=== PATIENT | male | born 1935 | race Caucasian/White ===

== ENCOUNTER 2022-03-06 13:21 | Emergency (ER) | payer MEDICARE, SELFPAY ==
--- NOTE | 2022-03-06 13:27 | XRR_ITS ---
PROCEDURE INFORMATION: Exam: XR Left Hip Exam date and time: 03/06/2022 1:43 PM Age: 86 years old Clinical indication: Hip pain; Left hip; Additional info: Possible hip FX TECHNIQUE: Imaging protocol: XR Left hip. Views: 2 or 3 views hip with pelvis when performed. COMPARISON: No relevant prior studies available. 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 Osseous structures are intact. No acute fracture. Soft tissues: Unremarkable. XR/XR hip LT 2-3V wo/w pel* [id number] IMPRESSION: No acute findings.
[2022-03-06 14:01] VITALS: BP 122/74; PULSE 57; RESP 20; TEMP 36.6; O2SAT 99
--- NOTE | 2022-03-06 15:29 | ED_ITS ---
HPI - Fall General: Chief Complaint: Fall Stated Complaint: Left Hip injury, fell Time Seen by Provider: 03/06/22 15:29 History of Present Illness: fall, hit left hip Fall from: standing Review of Systems General: Reports: 10 or more systems reviewed and unremarkable except in HPI and below Skin/Breast: Reports: skin tenderness (left forearm ) Neuro: Reports: difficulty communicating thoughts (Alzheimer's) Physical Exam Const: COMMON NORMALS: no acute distress, healthy appearing and alert GENERAL APPEARANCE: cooperative and comfortable ORIENTATION/CONSCIOUSNESS: Yes awake HENMT: COMMON NORMALS: normocephalic, atraumatic, external ears normal, EAC's normal, TM's normal bilaterally and Normal external nose present HEAD & SCALP: normal to inspection, normocephalic and atraumatic FACE & SINUS: normal facial exam, sinuses nontender and face symmetric NOSE: Normal external nose present, Normal nares present and No nasal discharge present EXTERNAL EAR: Yes external ears normal EXTERNAL AUDITORY CANAL: EAC's normal TYMPANIC MEMBRANE: TM's normal bilaterally MOUTH: Normal oral and palatal mucosa present, lip normal and tongue normal THROAT: posterior oropharynx normal, tonsils normal and uvula midline Eye: COMMON NORMALS: Equal, round and reactive pupils present, EOMs intact bilaterally and conjunctivae normal GENERAL EYE: appearance normal, both eyes and all related structures and normal light reflex EYELID: eyelids normal CONJUNCTIVA: Yes conjunctivae normal PUPIL: Yes Equal, round and reactive pupils present EOM: Yes EOM abnormal DIRECT OPHTHALMOSCOPY: Yes normal light reflex Neck/C-Spine: COMMON NORMALS: full ROM, no lymphadenopathy, supple, no meningeal signs, no JVD and Thyroid normal GENERAL: Yes normal visual inspection THYROID: Thyroid normal CERVICAL SPINE: Yes cervical ROM normal and Yes normal cervical lordosis Lymph: LYMPHATIC: no lymphadenopathy noted Chest: COMMONS NORMALS: normal inspection of the chest and normal palpation of entire chest wall Resp: COMMON NORMALS: normal respiratory effort, No retractions and clear to auscultation bilaterally AUSCULTATION: clear to auscultation bilaterally Cardio: COMMON NORMALS: no JVD, regular rate, regular rhythm, S1 normal heart sound present, S2 normal heart sound present, No gallops present (Cardio), No clicks present (Cardio), No murmurs present (Cardio), No rub (Cardio) and Peripheral pulses 2+ throughout RATE: regular rate RHYTHM: regular rhythm HEART SOUNDS: S1 normal heart sound present and S2 normal heart sound present PERIPHERAL PULSES: Peripheral pulses 2+ throughout GI: COMMON NORMALS: Normal to inspection, nondistended, normoactive bowel sounds present, Soft to palpation, non-tender and no masses PALPATION: Yes Soft to palpation : COMMON NORMALS: Yes no CVA tenderness BLADDER/KIDNEY EXAM: Yes no CVA tenderness Back/Pelvis: COMMON NORMALS: no CVA tenderness, thoracic and lumbar spine normal to inspection, no thoracic nor lumbar tenderness and thoraco-lumbar ROM normal Extremity: COMMON NORMALS: normal to inspection, full ROM, capillary refill normal, no joint enlargement, no clubbing, cyanosis or edema, no calf tenderness and no pedal edema GENERAL: Yes normal exam except as noted Neuro: COMMON NORMALS: moves all extremities, no focal motor deficits, no sensory deficits noted and gait normal SENSORIUM/ORIENTATION: Yes alert MENINGEAL SIGNS: Yes no meningeal signs Psych: COMMON NORMALS: mental status grossly normal, Normal thought process present, cooperative, normal affect, speech normal and activity/motor behavior normal SPEECH: Yes normal speech THOUGHT PROCESS: Normal thought process present Skin: COMMON NORMALS: no wounds GENERAL SKIN EXAM: ecchymosis (left forearm ) TRAUMA: abrasion (left forearm ) Course Vital Signs: Vital signs: Vital Signs Temperature 98 F 03/06/22 14:01 Pulse Rate 57 L 03/06/22 14:01 Respiratory Rate 20 H 03/06/22 14:01 Blood Pressure 122/74 03/06/22 14:01 Pulse Oximetry 99 03/06/22 14:01 MDM - Fall Medical Decision Making Pt had fallen on Saturday onto left hip while was in another room. She is his primary caregiver. He did not note any pain but wanted to ensure his hip was not harmed as he had a previous fx on the same side earlier this year with extensive surgery. XRAY show NAF. We will proceed with DC. Evaluated left forearm abrasion and redressed. Lab Data Radiology Impressions Hip/Pelvis X-Ray 03/06/22 13:27 IMPRESSION: No acute findings. Imaging Data Other Imaging: Radiologist's impression: [address] [place] [address] XRay Report Signed Patient: Juan Roldan Unit #: [id number] : 1935 Age/Sex: 86 / M ADM Date: 03/06/22 Loc: ER Room/Bed: Attending Dr: Ordering Provider/Ordering MD: Quin Fitzpatrick MD Date of Service: 03/06/22 Procedure(s): XR hip LT 2-3V wo/w pel* [id number] Accession Number(s): [id number] Report Number: [id number] PROCEDURE INFORMATION: Exam: XR Left Hip Exam date and time: 03/06/2022 1:43 PM Age: 86 years old Clinical indication: Hip pain; Left hip; Additional info: Possible hip FX TECHNIQUE: Imaging protocol: XR Left hip. Views: 2 or 3 views hip with pelvis when performed. COMPARISON: No relevant prior studies available. 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 Osseous structures are intact. No acute fracture. Soft tissues: Unremarkable. XR/XR hip LT 2-3V wo/w pel* [id number] IMPRESSION: No acute findings. Dictated By: Raimundo Mason DO Signed By: Raimundo Mason DO Signed Date/Time: 03/06/22 1402 DD/ 1343 Discharge Plan Discharge Patient Disposition: Home Clinical Impression: Fall, Skin tear of left forearm without complication Condition: Stable Discharge Orders: Discharge ED (Routine); Ordered 03/06/22 Ordered By: Sylvie Calderon Patient Instructions: Opioid Safety Activity Restrictions/Additional Instructions: Dress wounds as previous. If concerns for healing, call his PCP for a referral to wound care. We can see him within a few days of notifying typically. Coding Level of Care Code ED Business Development Representative for Tabatha Saenz
--- NOTE | 2022-03-07 12:35 | DCPLANNER ---
Addendum entered by Freida Burrell 03/13/22 07:07: Patient had an appointment with Wound Care - patient did attend appointment. Original Note: human resources benefits manager had message to schedule a follow up appointment appointment with Wound Care. Patient has a follow up appointment scheduled for 03.07.22 with Sylvie Calderon.
== END 2022-03-06 16:31 | disposition home or self-care (01) ==
PROVIDERS: Emergency Provider Nurse Practitioner Family
DX: S50.812A Abrasion of left forearm, initial encounter (principal); M25.552 Pain in left hip; W19.XXXA Unspecified fall, initial encounter; G30.9 Alzheimer's disease, unspecified; F02.80 Dementia in other diseases classified elsewhere, unspecified severity, without behavioral disturbance, psychotic disturbance, mood disturbance, and anxiety
CPT/HCPCS: 73502; 99283

== ENCOUNTER → 2022-03-08 13:14 | Outpatient (BNVA) | payer MEDICARE, SELFPAY | PROVIDERS: Visit Provider Nurse Practitioner Family | DX: I96 Gangrene, not elsewhere classified (principal); L98.491 Non-pressure chronic ulcer of skin of other sites limited to breakdown of skin | CPT/HCPCS: 99203; 99213 ==

== ENCOUNTER → 2022-03-15 13:50 | Outpatient (BNVA) | payer MEDICARE, SELFPAY | PROVIDERS: Visit Provider Nurse Practitioner Family | DX: I96 Gangrene, not elsewhere classified (principal); L98.491 Non-pressure chronic ulcer of skin of other sites limited to breakdown of skin; Z09 Encounter for follow-up examination after completed treatment for conditions other than malignant neoplasm | CPT/HCPCS: 99212; A6212 ==